=== PATIENT | female | born 2000 | race Caucasian/White ===

== ENCOUNTER 2024-09-26 15:28 | Emergency (ER) | payer OTHER ==
[~2024-09-26] VITALS: Ht 172.7 cm; Wt 74.0 kg
[2024-09-26 16:13] LABS: MEAN PLATELET VOLUME 8.4 FL (7.4-10.4); RED CELL DISTRIBUTION WIDTH 12.5 % (11.5-14.5)
[2024-09-26 16:29] LABS: CREATININE 0.69 MG/DL (0.40-0.90); TOTAL CARBON DIOXIDE 25.6 MMOL/L (24-32); eCRCL 128 ML/MIN; eGFR > 90 ML/MIN
[2024-09-26 17:27] VITALS: BP 122/80; PULSE 78; RESP 16; O2SAT 96
[2024-09-26 17:38] LABS: LEUKOCYTE ESTERASE ,URINE TRACE (Neg); NITRITES, URINE NEGATIVE (Neg); OCCULT BLOOD,URINE NEGATIVE (Neg)
[2024-09-26 17:45] LABS: URINE HCG NEGATIVE (NEG)
--- NOTE | 2024-09-26 17:48 | Physician Documentation ---
History of Present Illness Chief Complaint: Abdominal Pain Stated Complaint: ABDOMINAL PAIN Time Seen by MD: 15:55 HPI Patient presents with a complaint of midepigastric abdominal pain which started about an hour ago. She states she had chili for lunch. Last bowel movement was at 1:00 a.m. today. Denies any history of gallbladder pathology states she has all of her organs including her appendix She also adds that since she has been in the ED her pain has subsided and she is no longer in pain Day of Onset: Sep 26, 2024 Medication Reconciliation Allergies: Coded Allergies: No Known Allergies (Unverified , 09/26/24) Review of Systems All Other Systems at this time: Reviewed and Negative ROS As stated above in the HPI, otherwise all systems are reviewed and negative. Physical Exam Vital Signs: Temperature: 97.5, Source: Temporal, Heart Rate: 78, Respiratory R ate: 16, BP: 122/80, Pulse Oximetry: 96, Weight: 74.000 Oxygen Flow Rate: 0 Progress Results/Orders Results/Orders Vital Signs 09/26/24 09/26/24 09/26/24 15:45 17:22 17:27 Temp 97.5 Pulse 74 78 Resp 16 16 16 B/P (MAP) 126/81 122/80 (94) Pulse Ox 98 96 O2 Flow Rate 0 0 Laboratory Tests Test 09/26/24 16:05 09/26/24 16:41 White Blood Count 5.5 Red Blood Count 5.17 Hemoglobin 14.6 Hematocrit 41.6 Mean Corpuscular Volume 80.6 Mean Corpuscular Hemoglobin 28.4 Mean Corpuscular Hemoglobin Concent 35.2 Red Cell Distribution Width 12.5 Platelet Count 293 Mean Platelet Volume 8.4 Neutrophils (%) (Auto) 54.8 Lymphocytes (%) (Auto) 33.5 Monocytes (%) (Auto) 8.8 Eosinophils (%) (Auto) 2.4 Basophils (%) (Auto) 0.5 Neutrophils # (Auto) 3.0 Lymphocytes # (Auto) 1.8 Monocytes # (Auto) 0.5 Eosinophils # (Auto) 0.1 Basophils # (Auto) 0.0 CBC Comment Sodium Level 134 L Potassium Level 3.7 Chloride Level 101 Carbon Dioxide Level 25.6 Anion Gap 7 L Blood Urea Nitrogen 13 Creatinine 0.69 Estimated GFR/1.73 m2 > 90 BUN/Creatinine Ratio 18.8 Glucose Level 89 Calcium Level 9.4 Total Bilirubin 0.3 Aspartate Amino Transf (AST/SGOT) 22 Alanine Aminotransferase (ALT/SGPT) 33 Alkaline Phosphatase 62 Total Protein 8.1 Albumin 4.6 Globulin 3.5 Albumin/Globulin Ratio 1.3 Lipase 51 Chemistry Comments Urine HCG, Qualitative Negative Urine Comment Departure Disposition: HOME / SELF CARE / HOMELESS Impression: Primary Impression: Abdominal pain Discharge Instructions: Abdominal Pain (Nonspecific) Referrals: NO PRIMARY CARE PROVIDER (PCP) Signature Scribe Signature: k Attestation: Scribed for Nathanael Pulido Emergency Medicine Specialist by Nathanael Clay NP . 09/26/24 19:01 NATHANAEL PULIDO NP Sep 26, 2024 17:48
[2024-09-26 17:52] LABS: UA COLLECTION TYPE CLN CATCH MIDSTREAM
[2024-09-26 18:03] LABS: RENAL CELLS, URINE FEW /HPF; SQUAMOUS EPITHELIAL CELL,UR MODERATE /LPF (FEW)
[2024-09-26 18:10] VITALS: TEMP 97.5
== END 2024-09-26 18:11 | disposition home or self-care (01) ==
LOC: ER 15:29
DX: R10.13 Epigastric pain (principal)
CPT/HCPCS: 36415; 80053; 81001; 81025; 83690; 85025; 87088; 99283